=== PATIENT | male | born 1985 | race Caucasian/White ===

== ENCOUNTER 2017-05-04 10:12 | Emergency (ER) | payer SELFPAY ==
[2017-05-04] MEDS ORDERED: LANTUS SOLOS100 U/M1 SQ (16:48)
[2017-05-04] MEDS ORDERED: METFORMIN HCL1000 MG PO (16:50)
[2017-05-04] MEDS ORDERED: RELION HUMUL100 U/M2 IJ (16:50)
== END 2017-05-04 10:37 | disposition left against medical advice (07) ==
LOC: ED 10:12
DX: Z53.21 Procedure and treatment not carried out due to patient leaving prior to being seen by health care provider (principal)

== ENCOUNTER 2017-05-04 15:02 | Emergency (ER) | payer OTHER ==
[~2017-05-04] VITALS: Ht 177.8 cm; Wt 78.9 kg
[2017-05-04 15:05] VITALS: Ht 177.8 cm; Wt 78.9 kg
[2017-05-04 16:22] LABS: CALCIUM 9.3 mg/dL (8.5-10.1); CARBON DIOXIDE 19.8 mmol/L (21-32); CHLORIDE SERUM 95 mmol/L (98-107); GFR1 > 60 mL/min; SODIUM SERUM 131 mmol/L (136-145)
[2017-05-04] MEDS ORDERED: LANTUS SOLOS100 U/M1 SQ (16:48)
[2017-05-04] MEDS ORDERED: RELION HUMUL100 U/M2 IJ (16:50)
[2017-05-04] MEDS ORDERED: METFORMIN HCL1000 MG PO (16:50)
[2017-05-04 17:09] LABS: BASOPHIL % 0.2 % (0-2); PLATELET COUNT 183 x10^3mcL (130-400); RED CELL DISTRIBUTION WIDTH 12.5 % (11.5-14.5)
[2017-05-04 17:31] LABS: T3 TOTAL 0.97 ng/mL
[2017-05-04 17:44] LABS: FREE T4 1.41 ng/dL (0.76-1.46); FREE THYROXINE INDEX 2.8 ug/dL (1.4-4.5); T4(THYROXINE) 7.6 ug/dL (4.7-13.3)
[2017-05-04 18:09] LABS: ALBUMIN 3.5 g/dL (3.4-5.0); BILIRUBIN DIRECT 0.35 mg/dL (0.0-0.2); BILIRUBIN TOTAL 2.1 mg/dL (0.20-1.00); MAGNESIUM 2.1 mg/dL (1.8-2.4); PHOSPHOROUS 2.9 mg/dL (2.5-4.9); TOTAL PROTEIN, SERUM 6.9 g/dL (6.4-8.2)
[2017-05-04 18:32] VITALS: BP 111/88
== END 2017-05-04 18:30 | disposition left against medical advice (07) ==
LOC: ED 15:02 → DU 16:35 → ED 18:30
PROVIDERS: Emergency Medicine; Family Medicine Sports Medicine
DX: K05.00 Acute gingivitis, plaque induced (principal); E11.65 Type 2 diabetes mellitus with hyperglycemia; G62.9 Polyneuropathy, unspecified; F12.20 Cannabis dependence, uncomplicated; M79.642 Pain in left hand; M79.641 Pain in right hand; M79.672 Pain in left foot; M79.671 Pain in right foot; G89.29 Other chronic pain; M54.2 Cervicalgia
CPT/HCPCS: 82962; 83880; 84439; J1815; J1885; J7030